=== PATIENT | male | born 1980 | race Caucasian/White ===

== ENCOUNTER 2023-01-11 10:45 | Emergency (ER) | payer BC ==
[~2023-01-11] VITALS: Ht 170.2 cm; Wt 77.1 kg
--- NOTE | 2023-01-11 10:58 | NUR ---
Called Poison control and spoke with Denzel pharmacist recommedations for labs received and endorse to Dr. Oliva. cbc, dmp, pt, INR, fibrinogen, cpk. pt. needs to be assessed Q1hour X6 hours monitor for redness, swelling pain and bruising. In 5 hours recheck labs dbc, pt, INR, fibrinogen. If no swelling redness, or bruising and labs stable pt. may be clear to be sent home, with wound care instrucitons and tetanus shot o be administered if indicated.
--- NOTE | 2023-01-11 11:05 | NUR ---
Pt arrived via EMS in [facility]. Awake and oriented x4, c/o possible snake bite on right lowewr gonzalez. Area with 2 small red gandhi, denies pain, no swelling, circumference measures 29cm. Right AC HL in place. Attached to monitor. Pt seen and examined by Dr. Oliva.
--- NOTE | 2023-01-11 11:10 | NUR ---
Labs drawn. called an updated on patients condition.
[2023-01-11 11:11] LABS: HEMATOCRIT 39.5 % (36.7-47.1); MEAN CORPUSCULAR HEMOGLOBIN 31.7 uug (23.8-33.4); MEAN CORPUSCULAR VOLUME 94.1 fL (73.0-96.2); PLATELET COUNT (AUTO) 201 K/uL (152-348)
[2023-01-11 11:20] LABS: CREATININE 1.1 mg/dL (0.6-1.3); POTASSIUM 3.9 mmol/L (3.5-5.1)
[2023-01-11 11:26] LABS: BILIRUBIN,TOTAL 0.7 mg/dL (0.2-1.0); TOTAL PROTEIN, SERUM 7.3 g/dL (6.4-8.2)
--- NOTE | 2023-01-11 11:27 | NUR ---
Bite area measured at 29cm, no change in assessment. Pt denies pain. VSS. Labs pending.
--- NOTE | 2023-01-11 12:01 | NUR ---
Pt resting in gurney, leg elevated, no change in wound assessment. visiting, eating lunch together.
--- NOTE | 2023-01-11 12:20 | NUR ---
Pt has remained stable. Labs WNL. Spoke wi6th Dr. Fuchs. Pt requesting early discharge. Discussed proper protocol for wound assessment and repeat labs. Pt signed out AMA will return to the ER if condition changes, accompanied by .
[2023-01-11 12:26] VITALS: BP 118/70
== END 2023-01-11 12:33 | disposition left against medical advice (07) ==
LOC: ER 11:12
DX: T63.001A Toxic effect of unspecified snake venom, accidental (unintentional), initial encounter (principal); Y92.89 Other specified places as the place of occurrence of the external cause
CPT/HCPCS: 36415; 85025; 85730; A4663